=== PATIENT | female | born 1990 ===

== ENCOUNTER 2019-10-30 12:22 | Emergency (ER) | payer OTHER ==
--- NOTE | 2019-10-30 13:04 | EDM.PDOC ---
ED HPI GENERAL MEDICAL PROBLEM - General Chief Complaint: General Stated Complaint: LEFT SHOULDER Time Seen by Provider: 10/30/19 12:35 Source of Information: Reports: Patient History Limitations: Reports: No Limitations - History of Present Illness INITIAL COMMENTS - FREE TEXT/NARRATIVE: Patient with shoulder surgery 6 weeks ago. Now complaing of increased pain in left shoulder No new trauma, no fever, no redness. Worse with certain movements but hurts all th time Onset: Gradual Onset Date: 09/18/19 Location: Reports: Upper Extremity, Left Right Middle Arm Pain Score (Numeric/FACES): 9 - Related Data Allergies Allergy/AdvReac Type Severity Reaction Status Date / Time No Known Allergies Allergy Verified 10/30/19 12:37 Past Medical History - Past Health History Medical/Surgical History: Denies Medical/Surgical History Social & Family History - Tobacco Use Used Tobacco, but Quit: No Second Hand Smoke Exposure: No - Caffeine Use Caffeine Use: Reports: Coffee ED ROS GENERAL - Review of Systems Review Of Systems: See Below Constitutional: Denies: Fever, Chills, Malaise Respiratory: Denies: Shortness of Breath, Cough Cardiovascular: Denies: Chest Pain, Lightheadedness Endocrine: Denies: Fatigue GI/Abdominal: Denies: Nausea, Vomiting Musculoskeletal: Reports: Shoulder Pain Skin: Reports: No Symptoms ED EXAM, GENERAL - Physical Exam Exam: See Below Exam Limited By: No Limitations General Appearance: Alert, WD/WN, Mild Distress Head: Atraumatic, Normocephalic Neck: Normal Inspection, Supple, Non-Tender Respiratory/Chest: No Respiratory Distress, Lungs Clear, Chest Non-Tender Cardiovascular: Regular Rate, Rhythm, No Murmur GI/Abdominal: Soft, Non-Tender Extremities: Other (Left shoulderdedcreased ROM due to pain, NO erythema , no undue warmth, MInimal increased pain with abduction, of flexion or extension of shoulder) Course - Vital Signs Last Recorded V/S: Last Vital Signs Temp 97.8 F 10/30/19 12:26 Pulse 93 10/30/19 12:26 Resp 18 10/30/19 12:26 BP 120/80 10/30/19 12:26 Pulse Ox 100 10/30/19 12:26 Departure - Departure Time of Disposition: 12:57 Disposition: Home, Self-Care 01 Clinical Impression: Shoulder pain, left Qualifiers: Chronicity: acute Qualified Code(s): M25.512 - Pain in left shoulder - Discharge Information *PRESCRIPTION DRUG MONITORING PROGRAM REVIEWED*: Yes *COPY OF PRESCRIPTION DRUG MONITORING REPORT IN PATIENT GLADYS: No Instructions: How to Use Cold Therapy Referrals: PCP,None [Primary Care Provider] - Forms: ED Department Discharge Additional Instructions: Percocet 5/325 1 tablet 4x/day as needed for pain Increase Gabapentin to 300 mg 3x/day Increase Naproxen to 500mg twice a day Follow up with your orthopedist in [place] KATHY Rest your shoulder other than usual PT Return for redness, increasing stiffness or other worsening as needed to ED Condition on discharge is stable Sepsis Event Note (ED) - Evaluation Sepsis Screening Result: No Definite Risk - Focused Exam Vital Signs: Vital Signs Temp Pulse Resp BP Pulse Ox 10/30/19 12:26 97.8 F 93 18 120/80 100
== END 2019-10-30 13:13 | disposition home or self-care (01) ==
LOC: LB.ED 12:22
DX: M25.512 Pain in left shoulder (principal)
CPT/HCPCS: 99283